=== PATIENT | female | born 1965 | race African-American/Black ===

== ENCOUNTER 2024-01-31 08:13 | Emergency (ER) | payer OTHER, SELFPAY ==
[2024-01-31 08:19] VITALS: BP 146/90
--- NOTE | 2024-01-31 08:38 | ED.GENMED ---
History of Present Illness
General
Chief Complaint: Headache
Source: patient
Time Seen by Provider: 01/31/24 08:25
History of Present Illness
History of Present Illness:
58yoF with a history of hypertension, hyperlipidemia, type 2 diabetes, hypothyroidism, and glaucoma presenting with her for evaluation of multiple complaints. Patient reports a right sided headache that began two days ago. Patient was at
work when she started to experience a headache in the right temporal region and right eye. Pain radiates to the posterior headache, right ear, and right jaw. Pain is described as a stabbing sensation. She had nausea at symptom onset but denies any
vomiting. The pain is worsening and she currently rates her pain as a 7/10 in severity. She has taken Tylenol without relief. She denies any prior history of similar headaches. She also reports shortness of breath, chills, and epigastric pain. Her
abdominal pain has been ongoing for about a month. No previous abdominal surgeries.
Past History
Past History
ED Past Medical History: HTN, NIDDM and Hypothyroidism; Negative Hypercholesterolemia
ED Past Surgical History: None
Social History
Tobacco: Non-smoker
Alcohol: None
Drug: None
Personal:
Living: with family
Employment: Employed
Family History
Family History: Negative Early CAD
Phy Exam
General Physical Exam
General Presentation: well appearing and no apparent distress
General age: appears stated age
General Skin: warm and dry
General Habitus: normal
General Mental: alert
ENT Exam
ENT Exam: TM's normal, pharynx normal and neck supple
Additional ENT: No meningismus
Eye Exam
Eye Exam: PERRL, EOMI and other (Pressure in R eye 19-20mmHg on repeat measurements)
Cardiovascular Exam
Cardiovascular Exam: regular rate/rhythm, no edema and no murmur
Pulmonary Exam
Pulmonary Exam: lungs clear, no respiratory distress, no crackles and no wheezing
Gastrointestinal Exam
Gastrointestinal Exam: soft and non distended
Palpation: generalized: Moderate tenderness
Neurological Exam
Neurological Exam: alert and no motor deficits
Skin Exam
Skin Exam: normal color and warm/dry
Psychiatric Exam
Psychiatric Exam: anxious
Course
Orders/Labs/Results
Orders:
Orders
01/31/24 08:41
Electrocardiogram (*1) Urgent
Reason for Study: Shortness of Breath
CT Head W/o Iv Contrast Urgent
Comment:
Reason For Exam: Acute headache
EKG- Treatment ONCE
01/31/24 08:54
CT Abd/pelvis W Iv Cont Urgent
Comment:
Reason For Exam: Generalized abd pain
0.9% Sodium Chloride 1000 ml [Nss] 1,000 ml IV BOLUS
Diphenhydramine [Benadryl] 25 mg IV NOW STA
Metoclopramide [Reglan] 10 mg IV NOW STA
CR Chest - 2 Views Urgent
Comment:
Reason For Exam: SOB
01/31/24 09:21
COVID-19 Antigen Urgent
Source: Nasal Swab
Complete Blood Count/With Diff Urgent
Comprehensive Metabolic Panel Urgent
Lipase Urgent
Troponin I Urgent
01/31/24 09:44
Diphenhydramine [Benadryl] 25 mg IV NOW STA
01/31/24 09:54
Magnesium Sulfate 1 grams 0.9% Sodium Chloride 100 ml [Nss] 100 ml IV NOW
Abnormal Lab Results
01/31/24
09:21
Hgb 11.3 L g/dL
(12.0-16.0)
Hct 35.0 L %
(37.0-47.0)
MCV 67.6 L fL
(81.0-99.0)
MCH 21.8 L pg
(27.0-31.0)
MCHC 32.3 L g/dL
(33.0-37.0)
RDW 15.0 H %
(11.5-14.5)
Carbon Dioxide 33 H mmol/L
(22-30)
BUN 20 H mg/dl
(7-17)
Glucose 171 H mg/dl
(70-99)
Calcium 10.9 H mg/dl
(8.4-10.2)
01/31/24 09:21
01/31/24 09:21
Vital Signs
Initial and Last Documented VS:
Initial Vital Signs
Temp Pulse Resp BP Pulse Ox
98.1 F 86 18 146/90 100
01/31/24 08:19 01/31/24 08:19 01/31/24 08:19 01/31/24 08:19 01/31/24 08:19
Last Documented Vital Signs
Temp Pulse Resp BP Pulse Ox
98.1 F 83 16 123/74 99
01/31/24 08:19 01/31/24 10:00 01/31/24 10:00 01/31/24 12:26 01/31/24 12:26
MDM/Problems Addressed
Differential Diagnosis Includes:
58yoF here with multiple symptoms including a R sided headache x 2 days, SOB, chills, and epigastric pain. No CP. No fevers. She is afebrile and hemodynamically stable. She is well-appearing and nontoxic. Exam is reassuring without focal deficits
or meningismus. Differential diagnosis includes but is not limited to: Migraine, tension headache, sinusitis, viral illness, ACS, doubt meningitis
Initial ED plan: Check abdominal labs, troponin/EKG, chest x-ray, CT head, and CT abdomen. IV Reglan, Benadryl, magnesium, and fluid bolus for headache.
*EKG
Interpreted by ED Provider?: Yes
EKG Intrepretation Date: 01/31/24
EKG Intrepretation Time: 09:17
Heart Rate: 70
Rhythm: sinus and sinus arrhythmia
Beverly: normal axis
Interval: normal interval
QRS Pattern: normal QRS
Ischemia: no ischemia
*Critical Care Note
Total Time (30-74mins, 75-104mins- exclusive of procedures): Not Applicable
Update Note
Update Note:
Labs overall unremarkable including normal white count, renal function, and LFTs. EKG shows normal sinus rhythm without ischemic changes and troponin is normal. Chest x-ray clear. CT head is negative for acute findings. CT abdomen shows moderate
constipation without other acute findings. Patient feeling improved on reassessment. Vital signs remained stable. No indication for admission at this time. Unclear etiology of symptoms, ?viral illness. Supportive care discussed. Advised close
PCP follow-up. ED return precautions discussed. Patient expressed understanding and is agreeable to plan. Patient discharged in stable condition.
ED Attending Note
-
Portions of this chart may have been created with voice recognition software.� Occasional wrong word or��sound alike� substitutions may have occurred due to the inherent limitations of voice recognition software.
Discharge Plan
Departure
Patient Disposition: Home (Routine Discharge)
Date of Disposition: 01/31/24
Time of Disposition: 12:15
Patient with high blood pressure during this ER visit?: No
Discharge Problem:
Acute headache, Shortness of breath, Epigastric pain
Instructions: Headache, Adult (DC)
Prescriptions:
No Action
metformin 500 mg Tablet
500 mg PO BID
amlodipine 10 mg Tablet
10 mg PO DAILY
levothyroxine 175 mcg Tablet
175 mcg PO DAILY
pantoprazole 40 mg Tablet,Delayed Release (Dr/Ec)
40 mg PO DAILY
glimepiride 4 mg Tablet
4 mg PO BID
triamterene-hydrochlorothiazid 37.5-25 mg Tablet
1 tab PO DAILY
losartan 100 mg Tablet
100 mg PO HS
pyridoxine (vitamin B6) [Vitamin B-6] 25 mg Tablet
50 mg PO DAILY
insulin glargine [Lantus Solostar U-100 Insulin] 100 unit/mL (3 mL) Insulin Pen
20 unit SC HS
simvastatin 10 mg Tablet
10 mg PO QPM
timolol 0.25 % Drops
1 drp BOTH EYES BID
Lumigan 0.01 % Drops
1 drp BOTH EYES HS
Lumigan 0.01 % Drops
1 drp BOTH EYES DAILY
Referrals:
Pedro Fitzgerald MD [Family Provider] -
Activity Restrictions/Additional Instructions:
Please call today to schedule a follow-up with your family doctor in 2-3 days. Return to the ER with any new or worsening symptoms.
Interventions
Interventions:
*Risk Screen - Suicide Last Done: 01/31/24 08:19
*General Assessment Last Done: 01/31/24 08:19
*Neglect/Abuse Screening Last Done: 01/31/24 08:19
ED- Fall Risk Assessment Last Done: 01/31/24 09:07
*ED COVID-19 Vaccine History Last Done: 01/31/24 08:19
*Nursing Disposition Last Done: 01/31/24 12:29
ED- Neurological Assessment Last Done: 01/31/24 09:07
Discharge Date and Time
Discharge Date/Time: 01/31/24 12:29
Print Language: BAHAMIAN
[2024-01-31 09:06] VITALS: BP 120/79; BMI 41.8
[2024-01-31] MEDS: REGLAN 10 MG IV (09:15)
[2024-01-31] MEDS: NSS 1000 IV (09:15)
[2024-01-31] MEDS: BENADRYL 25 MG IV (09:15)
[2024-01-31 09:25] VITALS: BP 139/82
[2024-01-31 09:46] LABS: % Basophils 0.5 % (0-2); % Eosinophils 2.5 % (0-6); % Immature Granulocytes 0.2 % (0-0.5); % Lymphocytes 24.8 % (20.5-51.1); % Monocytes 6.1 % (1.7-9.3); % Neutrophils 65.9 % (42.2-75.2); Absolute Eosinophils 0.2 10^3/uL (0-0.7); Absolute Lymphocytes 1.5 10^3/uL (1.2-3.4); Absolute Monocytes 0.4 10^3/uL (0.1-0.6); Hemoglobin 11.3 g/dL (12.0-16.0); Mean Corp Hgb Conc. 32.3 g/dL (33.0-37.0); Mean Corpuscular Hgb 21.8 pg (27.0-31.0); Mean Corpuscular Volume 67.6 fL (81.0-99.0); Nucleated Red Blood Cells % 0 %; Platelet Count 355 10^3/uL (130-400); Red Blood Cell Count 5.18 10^6/uL (4.20-5.40); White Blood Cell Count 6.1 10^3/uL (4.8-10.8)
[2024-01-31 09:59] LABS: ALT (SGPT) 20 U/L (0-35); AST (SGOT) 32 U/L (14-36); Albumin 4.8 g/dl (3.5-5.0); Alkaline Phosphatase 72 U/L (38-126); Blood Urea Nitrogen 20 mg/dl (7-17); Calcium 10.9 mg/dl (8.4-10.2); Carbon Dioxide 33 mmol/L (22-30); Chloride 98 mmol/L (98-107); Estimated Creatinine Clearance 71 ml/min; Glucose 171 mg/dl (70-99); Lipase 113 U/L (23-300); Potassium 3.7 mmol/L (3.5-5.1); Sodium 138 mmol/L (135-145); Total Bilirubin 0.5 mg/dl (0.2-1.3); eGFR > 60.00
[2024-01-31 10:00] VITALS: BP 136/86
[2024-01-31 10:06] LABS: COVID-19 Antigen Negative (Negative)
[2024-01-31 10:11] LABS: Troponin I < 0.012 ng/ml
[2024-01-31] MEDS: MAGNESIUM SULFATE 102 GRAMS IV (10:49)
[2024-01-31 12:26] VITALS: BP 123/74
== END 2024-01-31 12:29 | disposition home or self-care (01) ==
LOC: EMR 08:13
PROVIDERS: Physician Assistant; EMERGENCY PHYSICIAN Emergency Medicine; FAMILY PHYSICIAN Family Medicine
DX: R10.13 Epigastric pain (principal); R06.02 Shortness of breath; R51.9 Headache, unspecified; R11.0 Nausea; R68.83 Chills (without fever); Z11.52 Encounter for screening for COVID-19; I10 Essential (primary) hypertension; E11.9 Type 2 diabetes mellitus without complications; E03.9 Hypothyroidism, unspecified; Z88.5 Allergy status to narcotic agent
CPT/HCPCS: 99285; 96375 ×2; 96361; 96365; 70450; 71046; 74177; 80053; 83690; 84484; 85025; 87811; 93005; Q9967

== ENCOUNTER 2024-02-02 15:16 | Emergency (ER) | payer OTHER, SELFPAY ==
[2024-02-02 15:32] VITALS: BP 137/83
[2024-02-02 15:55] LABS: % Basophils 0.8 % (0-2); % Eosinophils 2.9 % (0-6); % Immature Granulocytes 1.6 % (0-0.5); % Lymphocytes 17.9 % (20.5-51.1); % Monocytes 8.6 % (1.7-9.3); % Neutrophils 68.2 % (42.2-75.2); Absolute Eosinophils 0.1 10^3/uL (0-0.7); Absolute Immature Granulocytes 0.1 10^3/uL (0-0.05); Absolute Lymphocytes 0.9 10^3/uL (1.2-3.4); Absolute Monocytes 0.4 10^3/uL (0.1-0.6); Absolute Neutrophils 3.3 10^3/uL (1.4-6.5); Hematocrit 35.9 % (37.0-47.0); Hemoglobin 11.5 g/dL (12.0-16.0); Mean Corpuscular Hgb 22.1 pg (27.0-31.0); Mean Corpuscular Volume 68.9 fL (81.0-99.0); Nucleated Red Blood Cells % 0 %; Platelet Count 332 10^3/uL (130-400); Red Blood Cell Count 5.21 10^6/uL (4.20-5.40); Red Cell Dist. Width 14.9 % (11.5-14.5); White Blood Cell Count 4.9 10^3/uL (4.8-10.8)
[2024-02-02 16:08] LABS: ALT (SGPT) 19 U/L (0-35); AST (SGOT) 27 U/L (14-36); Albumin 4.5 g/dl (3.5-5.0); Alkaline Phosphatase 74 U/L (38-126); Blood Urea Nitrogen 18 mg/dl (7-17); Carbon Dioxide 29 mmol/L (22-30); Chloride 97 mmol/L (98-107); Glucose 296 mg/dl (70-99); Potassium 3.6 mmol/L (3.5-5.1); Sodium 134 mmol/L (135-145); Total Bilirubin 0.5 mg/dl (0.2-1.3); Total Protein 7.7 g/dl (6.3-8.2); eGFR 57.88
[2024-02-02 16:18] LABS: Erythrocyte Sed Rate 49 mm/hour (0-20)
--- NOTE | 2024-02-02 17:18 | ED.GENMED ---
History of Present Illness
General
Chief Complaint: Headache
Time Seen by Provider: 02/02/24 16:34
History of Present Illness
History of Present Illness:
58-year-old female returns to the emergency department for evaluation of a severe right-sided headache with new onset right upper eyelid swelling. Patient was seen here 2 days ago for the same headache and at that time had a head CT that was
unremarkable. Symptoms have worsened and she developed a rash to the right forehead and right upper eyelid over the past 24 hours. Denies blurry vision or eye pain. No nausea or vomiting.
Past History
Past History
ED Past Medical History: HTN, NIDDM and Hypothyroidism; Negative Hypercholesterolemia
ED Past Surgical History: None
Social History
Tobacco: Non-smoker
Alcohol: None
Drug: None
Personal:
Living: with family
Employment: Employed
Family History
Family History: Negative Early CAD
Review of Systems
Review of Systems
Allergies reviewed?: Yes
All Other Systems: ROS reviewed and negative except as documented in HPI and ROS
Phy Exam
Physical Exam
Physical Exam:
GEN: Well appearing, NAD, WDWN
HEENT: Oral mucosa moist, no scleral icterus. Moderate swelling of the right upper eyelid with vesicular lesions scattered to the right upper eyelid and right forehead. Extraocular motions intact in all quinones and no diplopia is noted, right eye
fluorescein stain exam shows no focal fluorescein uptake and no visible dendritic lesions. No hyphema or hypopyon
Cardiac: Regular rate
Lung: No respiratory distress, no tachypnea
MSK: No gross deformity or injuries
Skin: Good color, no pallor or jaundice, no rashes
Neuro: AO x3, moves all extremities freely
Psych: Calm, cooperative
Course
Orders/Labs/Results
Orders:
Orders
02/02/24 15:42
CRP [C-Reactive Protein] Urgent
Complete Blood Count/With Diff Urgent
Comprehensive Metabolic Panel Urgent
Erythrocyte Sed Rate Urgent
TSH Urgent
Comment: ADD ON
02/02/24 17:18
Add On- LAB Urgent
Tests Added?: TSH
Abnormal Lab Results
02/02/24
15:42
Hgb 11.5 L g/dL
(12.0-16.0)
Hct 35.9 L %
(37.0-47.0)
MCV 68.9 L fL
(81.0-99.0)
MCH 22.1 L pg
(27.0-31.0)
MCHC 32.0 L g/dL
(33.0-37.0)
RDW 14.9 H %
(11.5-14.5)
Abs Immat Gran (auto) 0.1 H 10^3/uL
(0-0.05)
Absolute Lymphs (auto) 0.9 L 10^3/uL
(1.2-3.4)
Immature Gran % 1.6 H %
(0-0.5)
Lymphocytes % 17.9 L %
(20.5-51.1)
ESR 49 H mm/hour
(0-20)
Sodium 134 L mmol/L
(135-145)
Chloride 97 L mmol/L
(98-107)
BUN 18 H mg/dl
(7-17)
Creatinine 1.1 H mg/dL
(0.6-1.0)
Glucose 296 H mg/dl
(70-99)
C-Reactive Protein 14.30 H mg/L
(0.0-10.00)
02/02/24 15:42
02/02/24 15:42
Vital Signs
Initial and Last Documented VS:
Initial Vital Signs
Temp Pulse Resp BP Pulse Ox
99.6 F 94 16 137/83 100
02/02/24 15:32 02/02/24 15:32 02/02/24 15:32 02/02/24 15:32 02/02/24 15:32
Last Documented Vital Signs
Temp Pulse Resp BP Pulse Ox
99.6 F 94 16 137/83 100
02/02/24 15:32 02/02/24 15:32 02/02/24 15:32 02/02/24 15:32 02/02/24 15:32
MDM/Problems Addressed
MDM/Problems Addressed:
Patient's exam is consistent with herpes zoster given vesicular rash in a linear pattern extending from the right upper eyelid, bedside fluorescein stain shows no evidence for dendritic lesions and she has no eye related symptoms that would be
concerning for zoster ophthalmicus. Will start the patient on high-dose antivirals and pain medication. Discussed ED return parameters
*Critical Care Note
Total Time (30-74mins, 75-104mins- exclusive of procedures): Not Applicable
ED Attending Note
-
Portions of this chart may have been created with voice recognition software.� Occasional wrong word or��sound alike� substitutions may have occurred due to the inherent limitations of voice recognition software.
Discharge Plan
Departure
Patient Disposition: Home (Routine Discharge)
Date of Disposition: 02/02/24
Time of Disposition: 17:20
Patient with high blood pressure during this ER visit?: No
Discharge Problem:
Herpes zoster
Instructions: Shingles
Prescriptions:
New
valacyclovir 1 gram tablet
1,000 mg PO Q8H 7 Days Qty: 21 0RF
gabapentin 300 mg capsule
300 mg PO TID Qty: 45 0RF
oxycodone-acetaminophen [Percocet] 5-325 mg tablet
1 tab PO Q6HPRN PRN (Reason: pain) Qty: 10 0RF
No Action
metformin 500 mg Tablet
500 mg PO BID
amlodipine 10 mg Tablet
10 mg PO DAILY
levothyroxine 175 mcg Tablet
175 mcg PO DAILY
pantoprazole 40 mg Tablet,Delayed Release (Dr/Ec)
40 mg PO DAILY
glimepiride 4 mg Tablet
4 mg PO BID
triamterene-hydrochlorothiazid 37.5-25 mg Tablet
1 tab PO DAILY
losartan 100 mg Tablet
100 mg PO HS
pyridoxine (vitamin B6) [Vitamin B-6] 25 mg Tablet
50 mg PO DAILY
insulin glargine [Lantus Solostar U-100 Insulin] 100 unit/mL (3 mL) Insulin Pen
20 unit SC HS
simvastatin 10 mg Tablet
10 mg PO QPM
timolol 0.25 % Drops
1 drp BOTH EYES BID
Lumigan 0.01 % Drops
1 drp BOTH EYES HS
Lumigan 0.01 % Drops
1 drp BOTH EYES DAILY
Interventions
Interventions:
*ED COVID-19 Vaccine History Last Done: 02/02/24 15:30
*Nursing Disposition Last Done: 02/02/24 17:46
Discharge Date and Time
Discharge Date/Time: 02/02/24 17:47
Print Language: SAO TOMEAN
== END 2024-02-02 17:47 | disposition home or self-care (01) ==
LOC: EMR 15:16
PROVIDERS: EMERGENCY PHYSICIAN Emergency Medicine
DX: B02.9 Zoster without complications (principal); R51.9 Headache, unspecified; R22.0 Localized swelling, mass and lump, head; I10 Essential (primary) hypertension; E11.9 Type 2 diabetes mellitus without complications; E03.9 Hypothyroidism, unspecified; Z88.5 Allergy status to narcotic agent
CPT/HCPCS: 99283; 80053; 84443; 85025; 85652; 86140

== ENCOUNTER → 2024-06-23 11:26 | Outpatient (REF) | payer OTHER, SELFPAY | LOC: WDC 11:26 | PROVIDERS: ATTENDING PHYSICIAN Student in an Organized Health Care Education/Training Program | DX: Z12.31 Encounter for screening mammogram for malignant neoplasm of breast (principal) | CPT/HCPCS: 77063; 77067 ==